=== PATIENT | male | born 2000 | race Hispanic/Latino ===

== ENCOUNTER 2021-07-18 12:58 | Emergency (ER) | payer MEDICAID, OTHER ==
[~2021-07-18] VITALS: Ht 172.7 cm; Wt 79.4 kg
[2021-07-18 13:01] VITALS: BP 142/93
[2021-07-18 13:57] LABS: BASOPHILS % (AUTO) 0.3 % (0.0-5.0); EOSINOPHILS % (AUTO) 0.5 % (0.0-8.0); HEMATOCRIT 44.7 % (42-54); MEAN CORPUSCULAR HEMOGLOBIN 28.7 pg (27.0-33.0); MEAN CORPUSCULAR HGB CONC 33.6 g/dL (32.0-36.0); MEAN CORPUSCULAR VOLUME 85.6 fL (79-99); MONOCYTES % (AUTO) 4.4 % (3.0-13.0); NEUTROPHILS % (AUTO) 79.5 % (40.0-77.0); PLATELET COUNT (AUTO) 264 K/uL (130-400); RED BLOOD CELL COUNT(AUTO) 5.22 MIL/uL (4.50-6.20); RED CELL DISTRIBUTION WIDTH 12.5 % (11.0-15.5)
[2021-07-18] MEDS ORDERED: 0.9%NACL 1000ML 1,000 ML IV ONE (14:00)
[2021-07-18 14:03] LABS: APPEARANCE,URINE CLEAR (CLEAR); BILIRUBIN,URINE NEGATIVE (NEGATIVE); COLOR,URINE YELLOW (YELLOW); GLUCOSE, URINE (UA) NEGATIVE (NEGATIVE); KETONES,URINE NEGATIVE (NEGATIVE); LEUKOCYTE ESTERASE ,URINE NEGATIVE (NEGATIVE); NITRATE,URINE NEGATIVE (NEGATIVE); OCCULT BLOOD,URINE NEGATIVE (NEGATIVE); PH,URINE 6.5 (5.0-8.0); PROTEIN,URINE NEGATIVE (NEGATIVE); UROBILINOGEN,URINE 0.2 mg/dL (0.2-1.0)
[2021-07-18 14:11] LABS: AMPHET/METH SCREEN,URINE NEGATIVE (NEGATIVE); BARBITURATE SCREEN, URINE NEGATIVE (NEGATIVE); BENZODIAZEPINES SCREEN,URINE NEGATIVE (NEGATIVE); CANNABINOID SCREEN,URINE POSITIVE (NEGATIVE); COCAINE SCREEN,URINE NEGATIVE (NEGATIVE); OPIATE SCREEN,URINE NEGATIVE (NEGATIVE); PHENCYCLIDINE SCREEN,URINE POSITIVE (NEGATIVE)
[2021-07-18 14:16] LABS: CARBON DIOXIDE 29 mmol/L (21-32); CHLORIDE 104 mmol/L (101-111); CREATININE 0.8 mg/dL (0.5-1.5); GLOMERULAR FILTR. RATE CALC 127 mL/min (>60); GLUCOSE,RANDOM 103 mg/dL (70-105); POTASSIUM 3.7 mmol/L (3.5-5.1); SODIUM SERUM 142 mmol/L (136-145); UREA NITROGEN, BLOOD 10 mg/dL (7-18)
[2021-07-18 14:21] LABS: ALANINE AMINOTRANSFERASE 21 U/L (12-78); ALBUMIN 4.3 g/dL (3.5-5.0); ALCOHOL, BLOOD < 3 mg/dL (0-10); ASPARTATE AMINOTRANSFERASE 15 U/L (10-37); BILIRUBIN,TOTAL 0.4 mg/dL (0.2-1.0); SALICYLATE 4.2 mg/dL (2.8-20.0); TOTAL PROTEIN, SERUM 7.8 g/dL (6.0-8.3)
[2021-07-18 14:48] LABS: ACETAMINOPHEN < 1 mcg/mL (10-29)
== END 2021-07-18 15:38 | disposition home or self-care (01) ==
LOC: EDH 12:58
DX: F16.129 Hallucinogen abuse with intoxication, unspecified (principal)
CPT/HCPCS: 36415; 80053; 80305; 81003; 85025; 93005; 96360; 99284; G0481; J7030